=== PATIENT | male | born 1965 | race Caucasian/White ===

== ENCOUNTER 2023-07-17 19:13 | Emergency (ER) | payer OTHER, SELFPAY ==
[2023-07-17 19:47] VITALS: BP 152/78; PULSE 78; RESP 16; TEMP 36.6; O2SAT 96; BMI 35.9
--- NOTE | 2023-07-17 20:37 | CT_ITS ---
The [address] [address] Patient Name: MARY KAY BERNAL MRN: [id number] date: 1965 Sex: M Assigned Patient Location: ER Current Patient Location: [facility] Accession/Order Number: [id number] Exam Date: 07/17/2023 21:30 Report Date: 07/17/2023 22:13 At the request of: IVA FOSS Procedure: CT facial bones w con CT SCAN OF THE FACE WITH CONTRAST HISTORY: Concern for abscess. TECHNIQUE: Multiple axial images are performed through the facial bones from the level above the frontal sinuses down through the mandible. Images are then reconstructed in the sagittal and coronal planes.This exam was performed according to our departmental dose-optimization program which includes use of Automated Exposure Control, adjustment of the mA and/or kV according to patient size and/or use of iterative reconstruction technique. With contrast. Contrast: 20 cc of Omnipaque 300 COMPARISON: None. FINDINGS: Bones: There is no evidence for acute fracture. Mineralization: Bone mineralization is within normal limits. Soft tissues: Soft tissues are edematous. Paranasal sinuses: Left maxillary sinus mucus retention cyst The paranasal sinuses are otherwise well aerated. Mastoid air cells: The mastoid air cells are well aerated. Orbits: Normal. Question of a developing abscess in the posterior left mandible tooth. CT/CT facial bones w con IMPRESSION: 1. Mild soft tissue swelling. No drainable fluid collection. 2. Left mucous retention cysts within the maxillary sinus. 3. Question of a developing abscess in the posterior left mandible tooth. However, this should be evaluated by dentist. 4. Otherwise unremarkable CT scan of the face. Electronically authenticated by: BERNARDO GUALLPA Date: 07/17/2023 22:13
--- NOTE | 2023-07-17 20:40 | ED_ITS ---
HPI - Dental/Oral General Chief complaint: Dental/Oral Stated complaint: FACIAL MASS Time Seen by Provider: 07/17/23 19:59 Source: patient Mode of arrival: walk-in History of Present Illness HPI Narrative: Patient is a 58-year-old male with a history of diabetes who presents to the emergency department for pain and swelling to the mandible. He states for 3 to 4 weeks he has had a dental abscess which he believes is originating from tooth #26. He states he uses oral tobacco. He states he has swelling and pain in the anterior jaw, there has been no drainage, 1 week ago he finished doxycycline that was prescribed over the phone by his PCP. Patient states he had some improvement of the area but now feels it is worsening. He has had no difficulty swallowing or breathing. No objective fevers or vomiting. Related Data Home Medications Medication Instructions Recorded Confirmed insulin degludec 100 unit/mL (3 unit subcut 07/17/23 mL) subcutaneous pen (Tresiba FlexTouch U-100 insulin) lisinopril 10 mg tablet mg 07/17/23 metformin 1,000 mg tablet mg 07/17/23 pen needle, diabetic 32 gauge x 07/17/23 07/17/2332 (BD Sadie 2nd Gen Pen Needle) Previous Rx's Medication Instructions Recorded cephalexin 500 mg capsule 500 mg PO QID 10 days #40 caps 07/17/23 sulfamethoxazole 800 1 tab PO BID 10 days #20 tabs 07/17/23 mg-trimethoprim 160 mg tablet (Bactrim DS) Allergies Allergy/AdvReac Type Severity Reaction Status Date / Time Penicillins Allergy Verified 07/17/23 19:54 Review of Systems ROS Constitutional Denies: fever or chills Ears, nose, mouth, and throat Reports: mouth pain; Denies: throat pain or nasal congestion Cardiovascular Denies: chest pain Respiratory Denies: shortness of breath Gastrointestinal Denies: nausea or vomiting Musculoskeletal Denies: back pain or neck pain Integumentary/Breast Denies: rash Neurological Denies: headache Endocrine Denies: excessive urination PFSH PFSH Social History Smoking status: Never smoker Exam Narrative Exam Narrative: Gen.: Awake, alert, in no distress Head: Normocephalic, atraumatic ENT: Moist mucous membranes; large erythematous indurated abscess to the right anterior mandible with no palpable fluctuance or purulence. No folliculitis or pustules noted. Gumline in the anterior mandible/mucous membrane is erythematous and tender. No redness or swelling under the tongue. Clear speech. Airway widely open and patent with no trismus or drooling. No palpable swelling or induration to the submental space. Respiratory: No respiratory distress Extremities: Moves extremities equally Psych: Normal mood and affect Neuro: No focal neuro deficit Skin: Warm, dry, intact Constitutional Vital Signs, click to edit/add: Last Vital Signs Temp 97.8 F 07/17/23 19:47 Pulse 78 07/17/23 19:47 Resp 16 07/17/23 19:47 BP 151/83 H 07/17/23 21:05 Pulse Ox 96 07/17/23 19:47 Course Vital Signs Vital signs: Vital Signs Temperature 97.8 F 07/17/23 19:47 Pulse Rate 78 07/17/23 19:47 Respiratory Rate 16 07/17/23 19:47 Blood Pressure 152/78 H 07/17/23 19:47 Pulse Oximetry 96 07/17/23 19:47 Temperature 97.8 F 07/17/23 19:47 Pulse Rate 78 07/17/23 19:47 Respiratory Rate 16 07/17/23 19:47 Blood Pressure 151/83 H 07/17/23 21:05 Pulse Oximetry 96 07/17/23 19:47 MDM - Dental/Oral MDM Narrative Medical decision making narrative: 2151: Patient ordered to have IV pain medication, IV clindamycin. Exam is consistent with cutaneous abscess versus cellulitis of the face with no obvious dental or intraoral involvement at this time. Vital signs are unremarkable. Labs show normal white blood cell count, normal creatinine. Blood cultures were obtained. CT of the facial bones with contrast was obtained, results are pending at this time and case is turned over to attending physician. 10:25pm CT scan does not show abscess on the chin area. He has an incidental dental abscess on the left posterior area unrelated to his current issue. He'll follow-up with a dentist for that issue. treatment diagnosis and follow-up were discussed with the patient. Differential Diagnosis Differential diagnosis: Likely gingival abscess, dental caries, dental abscess and other (she'll abscess, facial cellulitis) Medical Records Attestation: I reviewed the patient's medical records. Lab Data Labs: Lab Results 07/17/23 Range/Units 20:45 WBC 9.3 (4.0-11.0) 10^3/uL RBC 4.96 (4.70-6.10) 10^6/uL Hgb 15.2 (14.0-18.0) g/dL Hct 45.8 (42.0-54.0) % MCV 92.3 (80.0-94.0) fL MCH 30.6 (25.9-34.0) pg MCHC 33.2 (29.9-35.2) g/dL RDW 12.3 (11.0-15.0) % Plt Count 314 (150-450) 10^3/uL MPV 10.3 (9.5-13.5) fL Neut % (Auto) 50.1 (43.0-75.0) % Lymph % (Auto) 40.5 (20.5-60.0) % [place] % (Auto) 6.9 (1.7-12.0) % Eos % (Auto) 1.8 (0.9-7.0) % Baso % (Auto) 0.4 (0.2-2.0) % Neut # (Auto) 4.7 (1.4-6.5) 10^3/uL Lymph # (Auto) 3.8 (1.2-3.8) 10^3/uL [place] # (Auto) 0.6 (0.3-0.8) 10^3/uL Eos # (Auto) 0.2 (0.0-0.7) 10^3/uL Baso # (Auto) 0.0 (0.0-0.1) 10^3/uL Abs Immat Gran (auto) 0.03 (0.00-0.03) 10^3/uL Imm/Tot Granulo (auto) 0.3 (0.0-0.5) % ESR 23 H (<=20) mm/hr Sodium 139 (136-145) mmol/L Potassium 3.6 (3.5-5.1) mmol/L Chloride 104 (98-107) mmol/L Carbon Dioxide 28.5 (21.0-32.0) mmol/L Anion Gap 10.1 BUN 12.0 (7.0-18.0) mg/dL Creatinine 0.78 (0.70-1.30) mg/dL Est GFR ( Amer) >60 (>=60) Est GFR (Non-Af Amer) >60 (>=60) BUN/Creatinine Ratio 15.4 Glucose 185 H (74-106) mg/dL Calcium 9.0 (8.5-10.1) mg/dL Total Bilirubin 0.4 (0.2-1.0) mg/dL AST 18 (15-37) U/L ALT 35 (16-63) U/L Alkaline Phosphatase 79 (46-116) U/L C-Reactive Protein 0.73 H (<=0.50) mg/dL Total Protein 7.8 (6.4-8.2) g/dL Albumin 3.9 (3.4-5.0) g/dL Globulin 3.9 g/dL Albumin/Globulin Ratio 1.[address] facial bones with contrast: Radiologist's impression: Procedure: CT facial bones w con CT SCAN OF THE FACE WITH CONTRAST HISTORY: Concern for abscess. TECHNIQUE: Multiple axial images are performed through the facial bones from the level above the frontal sinuses down through the mandible. Images are then reconstructed in the sagittal and coronal planes.This exam was performed according to our departmental dose-optimization program which includes use of Automated Exposure Control, adjustment of the mA and/or kV according to patient size and/or use of iterative reconstruction technique. With contrast. Contrast: 20 cc of Omnipaque 300 COMPARISON: None. FINDINGS: Bones: There is no evidence for acute fracture. Mineralization: Bone mineralization is within normal limits. Soft tissues: Soft tissues are edematous. Paranasal sinuses: Left maxillary sinus mucus retention cyst The paranasal sinuses are otherwise well aerated. Mastoid air cells: The mastoid air cells are well aerated. Orbits: Normal. Question of a developing abscess in the posterior left mandible tooth. IMPRESSION: 1. Mild soft tissue swelling. No drainable fluid collection. 2. Left mucous retention cysts within the maxillary sinus. 3. Question of a developing abscess in the posterior left mandible tooth. However, this should be evaluated by dentist. 4. Otherwise unremarkable CT scan of the face. Electronically authenticated by: BERNARDO GUALLPA Date: 07/17/2023 22 Discharge Plan Discharge Chief Complaint: Dental/Oral Clinical Impression: Cellulitis of face Patient Disposition: Home, Self-Care Time of Disposition Decision: 22:24 Condition: Good Mode of Transportation: Private Vehicle Prescriptions / Home Meds: New sulfamethoxazole-trimethoprim [Bactrim DS] 800-160 mg tablet 1 tab PO BID 10 Days Qty: 20 0RF cephalexin 500 mg capsule 500 mg PO QID 10 Days Qty: 40 0RF No Action metformin 1,000 mg tablet lisinopril 10 mg tablet (DME) pen needle, diabetic [BD Sadie 2nd Gen Pen Needle] 32 gauge x 5/32 needle MISCELLANEOUS insulin degludec [Tresiba FlexTouch U-100] 100 unit/mL (3 mL) insulin pen SUBCUT Instructions: Cellulitis (ED) Additional Instructions: Follow-up with her dentist about the other dental issues Stand Alone Forms: Portal Instructions Referrals: Physician,Non-Staff, MD [Primary Care Provider] - 1 week
[2023-07-17 20:56] LABS: Basophils Percent Auto 0.4 % (0.2-2.0); Eosinophils Absolute Auto 0.2 10^3/uL (0.0-0.7); Eosinophils Percent Auto 1.8 % (0.9-7.0); Hematocrit 45.8 % (42.0-54.0); Hemoglobin 15.2 g/dL (14.0-18.0); Immature Granulocytes Abs Auto 0.03 10^3/uL (0.00-0.03); Immature Granulocytes Pct Auto 0.3 % (0.0-0.5); Lymphocytes Absolute Auto 3.8 10^3/uL (1.2-3.8); Lymphocytes Percent Auto 40.5 % (20.5-60.0); Mean Corpuscular HGB Conc 33.2 g/dL (29.9-35.2); Mean Corpuscular Hemoglobin 30.6 pg (25.9-34.0); Mean Corpuscular Volume 92.3 fL (80.0-94.0); Mean Platelet Volume 10.3 fL (9.5-13.5); Monocytes Absolute Auto 0.6 10^3/uL (0.3-0.8); Monocytes Percent Auto 6.9 % (1.7-12.0); Neutrophils Absolute Auto 4.7 10^3/uL (1.4-6.5); Neutrophils Percent Auto 50.1 % (43.0-75.0); Platelet Count 314 10^3/uL (150-450); Red Blood Count 4.96 10^6/uL (4.70-6.10); Red Cell Distribution Width 12.3 % (11.0-15.0); White Blood Count 9.3 10^3/uL (4.0-11.0)
--- NOTE | 2023-07-17 20:57 | PC.NURSE ---
Pt presents to ER for a tooth abscess he has been dealing with for an extended period of time Pt states he finished a course of antibiotics (doxycycline) one week ago Pt states he uses warm compresses and ice but it only helps momentarily The outer aspect of the patients chin on the right side is raised, warm, tender, and bright red
[2023-07-17] MEDS: CLINDAMYCIN PHOSPHATE/D5W 900 MG/50 ML PIGGYBACK 100 MG IV (21:03)
[2023-07-17] MEDS: ONDANSETRON PF 4 MG/2 ML VIAL IV (21:03)
[2023-07-17 21:04] LABS: Erythrocyte Sedimentation Rate 23 mm/hr (<=20)
[2023-07-17] MEDS: KETOROLAC TROMETHAMINE 30 MG/ML VIAL IVP (21:04)
[2023-07-17] MEDS: MORPHINE SULFATE 4 MG/ML VIAL IV (21:04)
[2023-07-17 21:05] VITALS: BP 151/83
[2023-07-17 21:11] LABS: Alanine Aminotransferase 35 U/L (16-63); Albumin Level 3.9 g/dL (3.4-5.0); Alkaline Phosphatase 79 U/L (46-116); Anion Gap 10.1; Aspartate Amino Transferase 18 U/L (15-37); BUN Creatinine Ratio 15.4; Bilirubin Total 0.4 mg/dL (0.2-1.0); Carbon Dioxide 28.5 mmol/L (21.0-32.0); Chloride 104 mmol/L (98-107); Estimated GFR (African America >60 (>=60); Estimated GFR (Non-African Ame >60 (>=60); Globulin 3.9 g/dL; Glucose 185 mg/dL (74-106); Potassium 3.6 mmol/L (3.5-5.1); Sodium 139 mmol/L (136-145); Total Protein 7.8 g/dL (6.4-8.2)
[2023-07-17 21:12] LABS: C Reactive Protein 0.73 mg/dL (<=0.50)
[2023-07-17 22:47] VITALS: BP 154/90
== END 2023-07-17 22:49 | disposition home or self-care (01) ==
PROVIDERS: Physician Assistant; Emergency Provider Emergency Medicine
DX: L03.211 Cellulitis of face (principal); E11.9 Type 2 diabetes mellitus without complications; F17.220 Nicotine dependence, chewing tobacco, uncomplicated; Z79.4 Long term (current) use of insulin; Z79.84 Long term (current) use of oral hypoglycemic drugs
CPT/HCPCS: 36415; 70487; 80053; 85025; 85652; 86140; 87040; 96365; 96375; 99285; Q9967

== ENCOUNTER 2023-12-17 17:11 | Emergency (ER) | payer OTHER, SELFPAY ==
[2023-12-17 17:16] VITALS: BP 176/95; PULSE 109; TEMP 36.9; O2SAT 96; BMI 34.7
--- OUTSIDE RECORDS SUMMARY | 2023-12-17 17:22 | XMS_ITS | CCD ---
Author Organization [facility] Care Team Providers Care Loom Doffer Name Role Phone DO Ori Dunbar Primary Care Provider MD Manjinder Castanon Attending Provider [phone] ORI DUNBAR Primary Care Physician [phone] ORI DUNBAR Referring Unavailable Riley PANIAGUA Attending Unavailable DO Ori Dunbar Primary Care Provider DWAIN Echavarria Emergency Provider DWAIN Anderson Emergency Provider [phone] Aminta Fair Unavailable Mapus, Tondra Unavailable PETORI RYAN C Attending Unavailable PETCHAROICKORI C Referring Unavailable Petznick, Ori Primary Care Unavailable Mapus, Tondra K Admitting Unavailable Mapus, Tondra K Attending Unavailable Petznick, Ori Admitting Unavailable Petznick, Ori Primary Care Unavailable Petznick, Ori Attending Unavailable Petcharoick, Ori Primary Care Unavailable Manjinder Castanon Admitting Unavailable Manjinder Castanon Attending Unavailable Petznick, Ori Primary Care Unavailable Juan Pablo Echavarriaothy Admitting Unavailable Estiven Echavarria Attending Unavailable Petznick, Ori Primary Care Unavailable Sophia Anderson Admitting Unavailable Sophia Anderson Attending Unavailable Allergies Allergy Classification Reported Allergen(s) Allergy Type Date of Onset Reaction(s) Facility (1 source) penicillAMINE Drug Allergy [facility] Other (3 sources) Penicillin Drug Allergy [facility] Other (1 source) Penicillins Drug allergy (disorder) 3 [facility] Repository Medications Current Medications Medication Drug Class(es) Dates Sig (Normalized) Sig (Original) acetaminophen 325 mg / oxyCODONE hydrochloride 5 mg oral tablet (3 sources) Opioid Agonist Start: 02-20-2023 take 1 tablet by mouth every eight hours Oxycodone-Acetamin ophen (Percocet) 5-325 mg tablet Active 1 TAB PO Q8H 7 February 20, 2023 doxycycline hyclate 100 mg oral capsule (3 sources) Tetracycline-class Drug Start: 02-20-2023 take 100 mg by mouth twice daily Doxycycline Hyclate Active 100 MG PO Twice daily 20 February 19, 2023 11:00pm glimepiride 1 mg oral tablet (7 sources) Sulfonylurea Start: 09-30-2022 take 1 mg by mouth once daily Glimepiride Active 1 MG PO Daily September 29, 2022 11:00pm 3 ml insulin aspart, human 100 unt/ml pen injector (3 sources) Insulin Analog Start: 05-19-2023 Fiasp FlexTouch 100 UNIT/ML corrective scale 1:50 ac tid Subcutaneous As Directed (expect up to 30 units/day) Use my $99 coupon from kevin May, Active 3 ml insulin degludec 100 unt/ml pen injector (6 sources) Insulin Analog Start: 05-19-2023 Tresiba FlexTouch 100 UNIT/ML 24 units Subcutaneous qhs for 30 days (titrate up to 30 units/day) Use my $99 coupon from kevin May, Active inject 22 [IU] by louis bcutaneous injection once at bedtime Tresiba FlexTouch 100 UNIT/ML 22 units Subcutaneous Q HS Active lisinopril 10 mg oral tablet (7 sources) Angiotensin Converting Enzyme Inhibitor Start: 09-30-2022 take 10 mg by mouth once daily Lisinopril Active 10 MG PO Daily September 29, 2022 11:00pm pregabalin 75 mg oral capsule (4 sources) Start: 09-30-2022 take 75 mg by mouth once daily Pregabalin Active 75 MG PO Daily September 29, 2022 11:00pm rosuvastatin calcium 20 mg oral tablet (7 sources) HMG-CoA Reductase Inhibitor Start: 09-30-2022 take 20 mg by mouth once daily Rosuvastatin Active 20 MG PO Daily September 29, 2022 11:00pm Completed/Discontinued Medications Medication Drug Class(es) Dates Sig (Normalized) Sig (Original) metFORMIN hydrochloride 500 mg oral tablet (7 sources) Biguanide Start: 09-30-2022 End: 2023 take 500 mg by mouth twice daily Metformin Discontinued 500 MG PO Twice daily September 29, 2022 11:00pm 2023 10:17am take 1 tablet by lynn th every twelve hours metFORMIN HCl 1000 MG 1 tablet with a me al Orally Twice a day Active Problems Active Problems Problem Classification Problem Date Documented Date Episodic/Chronic Administrative/social admission (1 source) Dietary counseling and surveillance Episodic Diabetes mellitus with complications (8 sources) Hyperglycemia due to type 2 diabetes mellitus; Translations: [Type 2 diabetes mellitus with hyperglycemia] Chronic Diabetes mellitus without complication (5 sources) Type 2 diabetes mellitus; Translations: [Type 2 diabetes mellitus without complications] Onset: 05-19-2023 Chronic Disorders of lipid metabolism (12 sources) Hypertriglyceridemia ; Translations: [Pure hyperglyceridemia] Chronic Essential hypertension (4 sources) Hypertensive disorder; Translations: [Essential (primary) hypertension] Chronic Nutritional deficiencies (4 sources) Vitamin D deficiency; Translations: [Vitamin D deficiency, unspecified] Chronic Other aftercare (2 sources) Follow-up status; Translations: [Encounter for change or removal of nonsurgical wound dressing] 2023 Episodic Other aftercare (7 sources) Long-term current use of insulin; Translations: [intermodal dispatcher (current) use of insulin] Episodic Other aftercare (1 source) intermodal dispatcher (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) use of insulin Episodic Other nutritional; endocrine; and metabolic disorders (4 sources) Obesity; Translations: [Obesity, unspecified] Chronic Other nutritional; endocrine; and metabolic disorders (4 sources) Obese class II; Translations: [Body mass index (BMI) 35.0-35.9, adult] Chronic Other nutritional; endocrine; and metabolic disorders (1 source) Body mass index (BMI) 35.0-35.9, adult Chronic Pancreatic disorders (not diabetes) (4 sources) Acute pancreatitis; Translations: [Other acute pancreatitis] Episodic Unclassified (1 source) Dietary counseling and surveillance; Translations: [Dietary counseling and surveillance] Onset: 05-06-2023 Unclassified (1 source) Encounter for screening for malignant neoplasm of colon; Translations: [Encounter for screening for malignant neoplasm of colon] Onset: 09-30-2022 Past or Other Problems Problem Classification Problem Date Documented Da te Episodic/Chronic Skin and subcutaneous tissue infections (8 sources) Abscess; Translations: [Cutaneous abscess, unspecified] Onset: 02-20-2023 02-20-2023 Episodic Results Test Name Value Interpretation Reference Range Facility A1C HEMOGLOBINon 05-19-2023 HbA1c (Bld) [Mass fraction] 9.3 % [facility] Other Glucose - FINGER STICKon Glucose [Mass/Vol] 236 mg/dL [place] [facility] Other HbA1c (Bld) [Mass fraction]o n 05-19-2023 A1C HEMOGLOBIN [facility] [employer] Other Glucose Glucometer (BldC) [M ass/Vol]Ordered By: Manjinder Castanon on 09-30-2022 Glucose [Mass/Vol] 198 mg/dL [facility] Comment on above: Random Glucose Refer ence Range is dependent on time and content of last meal. Glucose of more than 200 mg/dL in a nonstressed, ambulatory subject supports the diagnosis of Diabetes Mellitus. Glucose Poct Glucometerson 0 09-30-2022 Commemt1 Glu2: Cleaned Meter [facility] Comment on above: Result Comment: PERF ORMED BY: [facility] [address] [place] [address] PATHOLOGIST LEGISLATIVE [employer]VOCATE NITISH MORLEY M.D. Performed By: #### G ZOELS #### Point of Care testing , Glucose [Mass/Vol] 198 mg/dL Normal [facility] Comment on above: Result Comment: [place] om Glucose Reference Range is dependent on time and content of last meal. Glucose of more than 200 mg/dL in a nonstressed, ambulatory subject supports the diagnosis of Diabetes Mellitus. Performed By: #### G ZOELS #### Point of Care testing , Jarad 09-30-2022 L Specimen: [id number] Received: 09/30/22 Status: EDITATino Drake Num: [id number] Spec Type: Surgical Subm Dr: Manjinder Castanon MD Tissues: A Colon Biopsy (SIGMOID POLYP) Procedures: HE/Terell, Gross/Micro L4 Age/ Patient Sex Location Account Attending Physician Trevon Fernandez/M [id number] Manjinder Castanon MD SPEC NUM: [id number] RECD: 09/30/22 STATUS: ALIX DRAKE NUM: [id number] SANTANA: 09/30/22[facility] DR: Manjinder Castanon MD ENTERED: 09/30/22 BERTHA WISDOM: SPEC TYPE: Surgical DEPT: S ORDERED: HE/2, Gross/Micro L4 ORDERED: HE/2, Gross/Micro L4 Pathological Diagnosis Colon, sigmoid, polyp, biopsy: - Tubular adenoma. Clinical Information Polyp Gross Description Received in formalin labeled with the patient's name, number and polyp sigmoid is one fragment of soft [place] tissue measuring 0.6 x 0.3 x 0.2 cm admixed with fecal material. Entirely submitted in one cassette labeled A1. Microscopic Description Two glass slides with H E stained material have been examined. The microscopic findings support the above pathologic diagnosis. CPT Codes 98270 Specimen: [id number] Received: 09/30/22 Status: ALIX Drake Num: [id number] Spec Type: Surgical Subm Dr: Manjinder Castanon MD Tissues: A Colon Biopsy (SIGMOID POLYP) Procedures: HE/2, Gross/Micro L4 Patient: JimTrevon [id number] (Continued) Signed (gaye romero on file) Justyna Devries MD 10/01/22 0955 [facility] No Panel InformationOrdered By: Manjinder Castanon on 09-30-2022 Bedside Glucose Comment Glu2: cleaned meter [facility] Vital Signs Date Time Vital Sign Value Performing Clinician Facility 05-19-2023 13:00-0400 Body height 187.96 cm Tondra Mapus Other [facility] Other 05-19-2023 13:00-0400 Body mass index (BMI) [Ratio] 35.05 kg/m2 Tondra Mapus Other [facility] Other 05-19-2023 13:00-0400 Body weight 123.83 kg Tondra Mapus Other [facility] Other 05-19-2023 13:00-0400 Diastolic blood pressure 83 mm[Hg] Tondra Mapus Other [facility] Other 05-19-2023 13:00-0400 Respiratory rate 18 /min Tondra Mapus Other [facility] Other 05-19-2023 13:00-0400 SaO2% (BldA) [Mass fraction] 95 % Tondra Mapus Other [facility] Other 05-19-2023 13:00-0400 Systolic blood pressure 149 mm[Hg] Tondra Mapus Other [facility] [employer] Other 05-06-2023 10:00-0400 Body height 187.96 cm Aminta Fair Other [facility] Other 2023 11:17-0400 Body height 187.96 cm DO Ori Petznick Work Phone: [facility] 2023 11:17-0400 Body temperature 98.2 [degF] DO Ori Petznick Work Phone: [facility] 2023 11:17-0400 Body weight 122.05 kg DO Ori Petznick Work Phone: [facility] 2023 11:17-0400 Diastolic blood pressure 82 mm[Hg] DO Ori Petznick Work Phone: [facility] 2023 11:17-0400 Heart rate 93 /min DO Ori Petznick Work Phone: [facility] 2023 11:17-0400 Respiratory rate 18 /min DO Ori Petznick Work Phone: [facility] 2023 11:17-0400 SaO2% (BldA) [Mass fraction] 96 % DO Ori Petznick Work Phone: [facility] 2023 11:17-0400 Systolic blood pressure 168 mm[Hg] DO Ori Petznick Work Phone: [facility] 02-20-2023 12:04-0400 Body height 187.96 cm DO Ori Petznick Work Phone: [facility] 02-20-2023 12:04-0400 Body weight 122.46 kg DO Ori Petznick Work Phone: [facility] 02-20-2023 12:02-0400 Body temperature 98.8 [degF] DO Ori Petznick Work Phone: [facility] 02-20-2023 12:02-0400 Diastolic blood pressure 101 mm[Hg] DO Ori Petznick Work Phone: 1(604)743-374479 [place] [address] 02-20-2023 12:02-0400 Heart rate 90 /min DO Ori Petznick Work Phone: 3(154)214-063412 [address] 02-20-2023 12:02-0400 Respiratory rate 16 /min DO Ori Petznick Work Phone: [phone])[phone] [place] [address] 02-20-2023 12:02-0400 SaO2% (BldA) [Mass fraction] 96 % DO Ori Petznick Work Phone: 3(333)563-925012 [address] 02-20-2023 12:02-0400 Systolic blood pressure 158 mm[Hg] DO Ori Petznick Work Phone: 3(532)442-064812 [address] 09-30-2022 09:10-0400 Diastolic blood pressure 65 mm[Hg] DO Ori Petznick Work Phone: 5(805)962-218112 [address] 09-30-2022 09:10-0400 Heart rate 65 /min DO Ori Petznick Work Phone: 5(219)882-821012 [address] 09-30-2022 09:10-0400 Respiratory rate 16 /min DO Ori Petznick Work Phone: 4(287)[phone] [address] 09-30-2022 09:10-0400 Systolic blood pressure 158 mm[Hg] DO Ori Petznick Work Phone: 0(514)[phone] [address] 09-30-2022 08:55-0400 SaO2% (BldA) [Mass fraction] 96 % DO Ori Petznick Work Phone: 2([phone])701-624912 [address] 09-30-2022 07:11-0400 Body height 187.96 cm DO Ori Petznick Work Phone: 0(523)335-945779 [place] [address] 09-30-2022 07:11-0400 Body weight 124.22 kg DO Ori Petznick Work Phone: [facility] Encounters Encounter Date Encounter Type Care Provider Facility Start: 08-25-2023 End: 08-25-2023 ambulatory Micaela Portillo Other [facility] Other Start: 08-25-2023 Telephone encounter Micaela Baldwin [facility] Start: 08-12-2023 End: 08-12-2023 ambulatory ORI DUNBAR Not Available Start: 05-19-2023 End: 05-20-2023 ambulatory Ori Dunbar [facility] [employer] Other Start: 05-19-2023 [facility] visit new patient Micaela Portillo [facility] Start: 05-12-2023 End: 05-12-2023 ambulatory Micaela Portillo Other [facility] Other Start: 05-12-2023 Telephone encounter Micaela Baldwin [facility] Start: 05-06-2023 (RD) Assistant Customer Service Manager Aminta Fair [facility] Start: 05-06-2023 End: 05-07-2023 ambulatory Ori Dunbar [facility] [employer] Other Start: 2023 End: 2023 Emergency department patient visit Ori Dunbar Facility[facility] Start: 2023 End: 2023 Emergency department patient visit DO Ori Petcharoick Work Phone: [facility] Work Phone: Start: 02-20-2023 End: 02-20-2023 Emergency department patient visit Ori Dunbar Facility[facility] Start: 02-20-2023 End: 02-20-2023 Emergency department patient visit DO Ori Petznick Work Phone: [facility] Work Phone: Start: 10-21-2022 End: 10-22-2022 ambulatory ORI PETZNICK Facility:[facility] Start: 10-21-2022 End: 10-21-2022 Patient encounter procedure Riley Herrera SIV[facility] Start: 09-30-2022 End: 09-30-2022 ambulatory Ori Dunbar Facility[facility] Start: 09-30-2022 End: 09-30-2022 Admission to same day surgery center DO Ori Dunbar Work Phone: [facility] Work Phone: Start: 09-30-2022 End: 09-30-2022 ambulatory DO Ori Dunbar Work Phone: [facility] Work Phone: Start: 09-01-2022 ambulatory ORI DUNBAR Facili ty:[facility] Procedures Date Procedure Procedure Detail Performing Clinician Start: 09-30-2022 Screening colonoscopy D O Ori Dunbar Work Phone: Plan of Treatment Date Care Activity Detail Author Start: 09-30-2022 [facility] Patient Education [facility] Work Phone: Patient referral [facility] Work Phone: Payers Date Payer Category Payer Unknown [id number] 2022 Self-pay [id number] 2022 Unknown [id number] 1965 Unknown [id number] [id number] [id number] Private Health Insurance [id number] Unknown [id number] 2.16.8 [id number] Unknown [id number] 2.16.8 [id number] Unknown [id number] 2.16.8 [id number] Unknown [id number] 2.16.8 [id number] Unknown [id number] 2.16.8 [id number] Social History Date Type Detail Facility Tobacco smoking stat us NCIS Unknown if ever smoked [facility] Work Phone: Start: 1965 Sex Assigned At Male [facility] Tobacco smoking status No Smokin g Status Entered [facility] Sex Assigned At Male [facility] Start: 02-20-2023 End: 2023 Tobacco smoking status NHIS Never smoked tobacco (finding) [facility] Goals Date Patient Goal Desired Activity /State Clinical Notes 09-30-2022 to 05-19-2023 Note Date & Type Note Facility 05-19-2023 Evaluation note Encounter Date Diagnosis Assessment Notes May, Insulin long-term use (ICD-10 - Z79.4) May, Type 2 diabetes mellitus (ICD-10 - E11.9) 1. Uncontrolled, a Type 2 diabetes with A1c of 9.3% 2. Blood glucose levels according to kaye cgm download 05/06/23-05/19/23: Avg glucose 269. >250-56%, >180-39%, 70-180-5%, <70-0%, <54-0%. CV 21.3% Reviewed download with pt, glucose above target fasting am/meal to meal. Recommend pt increase tresiba to 24 units qhs. Start fiasp 1:50 ac tid corrective scale. Reviewed with pt how to titrate basal insulin according to fasting am glucose. Pt given handout how to Thrive: A Guide for Your Journey with Diabetes: Recommend pt reducing milk intake to 8 oz with meal for improved postprandial glycemia. Will check labs to confirm type 2 dm vs type 1 dm; pt with family hx brother type 1 dm. Note: pt with hx pancreatitis do not recommend use of dpp4 or glp1 class of medication. 3. Patient is alert, oriented and receptive to making changes or counseling Notes: Seen for 60 minutes for an assessment of current glucose pattern, changes in treatment plan, counseling and coordination of care related to diabetes, risks, and benefits of treatment, medications, side effects. Given handouts to reinforce concepts reviewed during counseling, see scanned notes. TOPICS REVIEWED: 1. Time was spent reviewing: a. Basic concepts of diabetes, progressive beta cell , concepts of basal/bolus/corre ctive insulin requirements. Basal: The goal is fasting blood glucose of 90-130mg. If fasting blood glucose starts to run under 100mg 3x's/ week, decrease dose by 10%. Bolus: The goal is to hold the blood glucose level steady meal to meal. If pt. is going to have increased physical activity after a meal, decrease the schedule meal dose prior to the activity by 30-50%. If pt. skips a meal do not take this dose. Correction: The goal is to correct an elevated glucose back into the 100-150mg range b. Nutrition: Concepts of healthy diet reviewed, encouraged to decrease saturated fat in diet and increase non-starchy vegetables and fruits in diet. BMI: Pt. needs to select one small change to decrease caloric intake or increase physical activity to help decrease weight. c. Correct treatment of hypoglycemia, carry a glucose source at all times on your person, in vehicles, and at bedside. Can use glucose tablets/4, four ounces of pop or juice equal to 15 G of carbohydrate. Blood glucose should be 100 mg/dl or higher when driving. d. ADA glucose goals for age and medical complexity reviewed e. Patient questions addressed 2. Activity/exercise : Encouraged to start any form of physical activity. Start low level and increase slowly to a minimal goal of 150 minutes/week. Limit activity to what is allowed by other issues such as cardiac, pulmonary or orthopedic restrictions. 3. Standards of care: Reminded to have an annual dilated eye exam, A1C every 3 months, urine testing for microalbumin once/year, check feet daily and report any cuts or sores that do not appear to be healing. 4. Meter: Plan to check blood glucose: Please check blood glucose levels 4 times/day. Back to back meals reveal effectiveness of bolus dosing.5. [facility] 3 [facility]. Contact office if any issues or concerns with patterns of hypoglycemia, hyperglycemia, or diabetes medication issues. 6. Prescriptions: [facility] [address] [facility] Tresiba sent 05/19/23. Sample x2 boxes pen needles given. Sample fiasp u100 x1 pen given. 7. Prescriptions will not be filled unless you are compliant with follow up appointments or have a follow appointment scheduled as per ordered by your provider. Refills should be requested at the time of your visit. May, Dietary counseling and surveillance (ICD-10 - Z71.3) see above May, HTN (hypertension) (ICD-10 - I10) on chidi, uncontrolled; f/u with pcp for further recommendation May, Hyperlipidemia (ICD-10 - E78.5) May, BMI 35.0-35.9,adult (ICD-10 - Z68.35) see above [facility] Other 10-19-2023 Evaluation note* Encounter Date Diagnosis Assessment Notes Treatment Notes Treatment Clinical Notes Apr, Other Summary of Visi t: (A) Discussed carbs, types of carbs, sources of carbs and impact on BG levels (B) Discussed impact of fiber and protein on BG response (glycemic index) (C) Meal planning using food models and adjusting favorite meals to create more balance in food groups Patient set the following goals: - Eat meal or snack 3 x/day - aim for 1/2 plate veggies at dinner [facility] Other 08-07-2023 Hospital Discharge instructions Additional Instructions Warm compresses to area affected Continue antibiotic as instructed until gone Follow-up with your PCP for 3 to 5 days Return here if any problems persist or worsen including fever, chills, increased pain, swelling or any other [facility] Work Phone: [phone]) 598-510003-15-2023 [facility] No data available for this section [facility] Evaluation noteNo assessment information available [facility] Work Phone: Evaluation noteNo InformationNorth [facility] Other History and physical note Author Manjinder Castanon [facility] September 30, 2022 8:20am Note Date/Time September 30, 2022 8:2 0am [facility] [address] [place] [address] Gastroenterology H&P Signed Patient: Trevon Fernandez MR#: [id number] : 1965 Acct:[id number] Age/Sex: 57 / M Adm Date: 3 Loc: Room: Type: [facility] Attending Dr: Manjinder Castanon MD Copies to: MD Ori Sung, DO~ Date of Service: 09/30/2022 HISTORY & PHYSICAL: Patient's history with special attention to the cardiovascular, pulmonary systems and the current problem was reviewed with the patient immediately prior to the procedure. Present medications and doses reviewed in the EMR. Allergies and pertinent laboratory tests were also reviewedat this time in the EMR. The physical examination, as below, was then performed. Indication, assessment and HPI: 57-year-old male presents for screening colonoscopy Family history of GI malignancy? No PHYSICAL EXAMINATION Mouth and Pharynx : Moist mucus membranes, normal dentition Cardiac: Regular rate, regular rhythm Pulmonary: Clear to auscultation bilaterally, no wheezing Neurological: Alert and oriented x3, no focal deficits noted Abdomen: Abdomen soft, non-tender REVIEW OF SYSTEMS Constitutional: Denies malaise, fevers Cardiovascular: Denies chest pain, palpitations Respiratory: Denies shortness of breath, wheezing Gastrointestinal: Per HPI Genitourinary: Denies dysuria, polyuria Musculoskeletal: Denies joint swelling, joint stiffness Neurological: Denies numbness, tingling Integumentary: Denies rashes, skin lesions Endocrine: Denies fatigue, weight loss Written informed consent obtained from the patient. Risks (including but not limited to perforation, infection, bloating, bleeding, need for emergent surgeryand loss of life), benefits and alternatives explained and questions answered. The patient verbalized understanding. Based on history patient is an appropriate candidate for the procedure. Manjinder Castanon MD Documented By: Manjinder Castanon MD 09/30/22 0820 Signed By: <Electronically signed by Manjinder Castanon MD> 09/30/22 0820 [facility] Work Phone: [facility] Narrative - Reported* Type Description Date Medical History DM 2 Medical History HTN Medical History HLP, mixed Surgical History right knee arthoscope 1986 Surgical History left knee arthoscope 2015 Surgical History tonsillectomy Hospitalization History PANCREATITIS 10/2015 [facility] Other [facility] Narrative - Reported* Type Description Date Medical History DM 2 Medical History HTN Medical History HLP, mixed Medical History SKIN CANCER (BASAL CELL CARCINOM A) Medical History HX OF PANCREATITIS Medical History ANXIETY Medical History CHRONIC LEG PAIN 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 In some cases, this may be from a few hours to a day. Walking may help relieve the discomfort. - If you have polyp(s) removed you may note some minor bloody discharge after your first bowel movements. - You should begin to recover from anesthesia within 1 hour of the procedure, however may feel groggy for the next 24 hours. DO's AND DON'Ts: - Call your doctor right away if you have a hard abdomen, severe pain, are passing lots of bright red blood or clots. - Call your doctor if you develop any rashes, hives or difficulty breathing. - Let your doctor know if you have not had a bowel movement by 3 days after your procedure. - If you take 81 mg aspirin for your heart it is safe to resume this medication. - If you take other blood thinner medications your doctor will instruct you when these can safely be resumed. - Do NOT drive for 24 hours. - Do NOT operate machinery such as power tools, lawn mowers, snow blowers, sewing machines, etc. for 24 hours. - Avoid alcoholic beverages and drugs for allergies, nerves, or sleep. - Do NOT stay alone. Do NOT leave your child unattended. - Do NOT make important personal or business decisions or sign any legal documents. - Eat solid foods and drink liquids in smaller amounts than usual until normal appetite returns. If you should experience an upset stomach, liquids high in sugar content (soda, Finesse-Aid, non-acid juices) are recommended. - You can resume normal activities tomorrow. FOLLOW UP & RECOMMENDATIONS: -Follow-up with Dr. Castanon as needed -Notify the doctor if you have any problems. -Dr. Castanon's office will notify you when you need your next colonoscopy -Follow up with PCP. -Office number [phone].[facility] Work Phone: Hospital Discharge instructions No data available for this section [facility] Hospital Discharge instructions Additional Instructions Return back in 2 days for wound packing removal and [facility] Work Phone: Progress note No data available for this section [facility] Chief Complaint and Reason for Visit Chief Complaint Screening Chief Complaint Abcess on back Chief Complaint Abcess on back Packing removal Advance Directives No Advanced Directives Records Found Advance Directive Response Recorded Date/ Time Advance Directives No May 2:59pm Summary Purpose Family History Relationship Condition Age at Onset Recorded Date/T israel Not Specified No pertinent family history Unknown brother Diabetes mellitus Unknown Heart disease Unknown Hypertension Unknown History of stroke Unknown father Unknown Malignant neoplasm Unknown Family history of other condition Unknown Not Specified Unknown Malignant neoplasm of ovary Unknown Diabetes mellitus Unknown No Family History Records Found Additional Source Comments Care Teams (unrecognized sec tion and content) Team Status: Active Member Role Status Dates Ori Dunbar DO Primary Care Provider Active Team Status: Inactive Member Role Status Dates Ori Dunbar DO Primary Care Provider Active Manjinder Castanon MD Attending Provider Active Team Status: Inactive Member Role Status Dates Ori Dunbar , Primary Care Provider Active Estiven Echavarria APRN Emergency Provider Active Team Status: Inactive Member Role Status Dates Ori Dunbar DO Primary Care Provider Active Sophia Anderson APRN Emergency Provider Active (unrecognized sect ion and content) No Status Records FoundNo Status Records FoundNo Status Records Found INFORMATION SOURCE (unrecogn ized section and content) DATE CREATED AUTHOR 10/23/2022 [facility] DATE CREATED AUTHOR AUTHOR'S ORGANIZ ATION 08/13/2023 [facility] DATE CREATED AUTHOR AUTHOR'S ORGANIZ ATION 09/17/2023 [facility] Goals (unrecognized section and content) Goals may be documented in a n alternate section REASON FOR VISIT (unrecogniz ed section and content) dmTKM - NEW PATIENT NEXT WEE KNew pt Type 2 DM kaye 2 cgm 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 This clinical summary was aggregated from multiple sources. Caution should be exercised in using it in the provision of clinical care. This summary normalizes information from multiple sources, and as a consequence, information in this document may materially change the coding, format and clinical context of patient data. In addition, data may be omitted in some cases. CLINICAL DECISIONS SHOULD BE BASED ON THE PRIMARY CLINICAL RECORDS. [employer] provides no warranty or guarantee of the accuracy or completeness of information in this document.
--- NOTE | 2023-12-17 17:30 | ED.WOUNDLAC1 ---
HPI - Wound/Laceration General Chief Complaint: Wound/Laceration Stated Complaint: facial injury-[facility] Time Seen by Provider: 12/17/23 17:30 Source: patient Mode of arrival: walk-in Limitations: no limitations History of Present Illness HPI narrative: This patient is here from his place of employment. He sustained a blunt trauma from a door striking him in the upper maxillary lip area. He had a partial plate and the teeth were knocked out. He also has a laceration to the inner upper lip on the right of the midline. He said his dentist who did the partial plate is retired. He does not have any other dentist. He has allergies to penicillin. He does not have any other trauma or injury today. This is a Worker's Comp. type of injury. Related Data Home Medications ?Medication ?Instructions ?Recorded ?Confirmed lisinopril 10 mg tablet 10 mg PO DAILY 07/17/23 12/17/23 metformin 1,000 mg tablet 1,000 mg PO DAILY 07/17/23 12/17/23 pen needle, diabetic 32 gauge x 07/17/23 07/17/23 (BD Sadie 2nd Gen Pen Needle) rosuvastatin 20 mg tablet 20 mg PO DAILY 12/17/23 12/17/23 Allergies Allergy/AdvReac Type Severity Reaction Status Date / Time Penicillins All[facility]ified 12/17/23 17:[facility] Social History Smoking status: Never smoker Exam Constitutional Vital Signs, click to edit/add: Last Vital Signs Temp 98.4 F 12/17/23 17:16 Pulse 109 H 12/17/23 17:16 Resp 18 12/17/23 17:16 BP 176/95 H 12/17/23 17:16 Pulse Ox 96 12/17/23 17:16 O2 Del Method Room Air 12/17/23 17:16 Course Vital Signs Vital signs: Vital Signs Temperature 98.4 F 12/17/23 17:16 Pulse Rate 109 H 12/17/23 17:16 Respiratory Rate 18 12/17/23 17:16 Blood Pressure 176/95 H 12/17/23 17:16 Pulse Oximetry 96 12/17/23 17:16 Oxygen Delivery Method Room Air 12/17/23 17:16 Temperature 98.4 F 12/17/23 17:16 Pulse Rate 109 H 12/17/23 17:16 Respiratory Rate 18 12/17/23 17:16 Blood Pressure 176/95 H 12/17/23 17:16 Pulse Oximetry 96 12/17/23 17:16 Oxygen Delivery Method Room Air 12/17/23 17:16 Discharge Plan Discharge Chief Complaint: Wound/Laceration Prescriptions / Home Meds: No Action metformin 1,000 mg tablet 1,000 mg PO DAILY lisinopril 10 mg tablet 10 mg PO DAILY (DME) pen needle, diabetic [BD Sadie 2nd Gen Pen Needle] 32 gauge x 5/32 needle MISCELLANEOUS rosuvastatin 20 mg tablet 20 mg PO DAILY Print Language: [place] Citizen Referrals: Physician,Non-Staff, MD [Primary Care Provider] - 1 week
[2023-12-17] MEDS: WATER FOR IRRIGATION, STERILE 1,000 ML IRRIG.SOLN 1000 ML IRR (17:40)
[2023-12-17] MEDS: LIDOCAINE HCL 1%-EPINEPHRINE 1:100,000 20 ML MDV INJ (17:40)
[2023-12-17] MEDS: HYDROCODONE/ACET 5-325 MG TABLET 2 TAB PO (18:02)
--- NOTE | 2023-12-17 18:03 | ED_ITS ---
HPI - Wound/Laceration General Chief Complaint: Wound/Laceration Stated Complaint: facial injury-[facility] Time Seen by Provider: 12/17/23 17:30 Source: patient Mode of arrival: walk-in Limitations: no limitations History of Present Illness HPI narrative: 58-year-old male presents from work for evaluation of facial laceration. Patient states he was working with a device that had a safety bar at the size of a shoebox, patient reports it opened quickly under power almost like it was stuck and struck him in the face. Patient has a complex laceration to the upper lip and broke the 2 front teeth of the upper palate where he had prior dental implants. Patient notes moderate pain to the face localized to the area of the laceration. He denies any headache or loss of consciousness. Location: Reports face Place: Reports work Context: Reports accidental Associated symptoms: Reports pain Related Data Home Medications ?Medication ?Instructions ?Recorded ?Confirmed lisinopril 10 mg tablet 10 mg PO DAILY 07/17/23 12/17/23 metformin 1,000 mg tablet 1,000 mg PO DAILY 07/17/23 12/17/23 pen needle, diabetic 32 gauge x 07/17/23 07/17/2332 (BD Sadie 2nd Gen Pen Needle) rosuvastatin 20 mg tablet 20 mg PO DAILY 12/17/23 12/17/23 Allergies Allergy/AdvReac Type Severity Reaction Status Date / Time Penicillins Allergy Verified 12/17/23 17:19 Review of Systems ROS Constitutional Denies: fever or chills Ears, nose, mouth, and throat Denies: throat pain or neck pain Cardiovascular Denies: chest pain or palpitations Respiratory Denies: shortness of breath or cough Gastrointestinal Denies: abdominal pain or nausea Integumentary/Breast Denies: rash Neurological Denies: headache Psychiatric Denies: anxiety PFSH PFSH Social History Smoking status: Never smoker Exam Narrative Exam Narrative: Nurses notes reviewed and patient is noted to be non-hypoxic. General: The patient is comfortable, alert and oriented x3, well appearing, non toxic in no apparent distress. Head: normocephalic. laceration to the upper lip. Upper front 2 teeth fractured off at the gumline, no whole : history of dental implants Eyes: Normal conjunctiva, no exudates. ENT: The oropharynx is normal. No pharyngeal erythema, uvular edema, tonsillar exudates, asymmetry or trismus. Uvula is midline. For complex laceration and the upper lip, does not protrude through the vermilion border. Slight avulsion of the skin flap on the anterior lip also noted. No other visible dental injury noted other than fracture at the gumline At the upper front 2 teeth. Airway is patent. Neck: The neck demonstrates normal range of motion. No meningeals signs are present. No stridor. No masses or lymphandenopathy noted.No neck tenderness. Respiratory: No acute distress, lungs are clear to auscultation, no wheezing, rhonchi, or rales noted. No stridor or retractions are noted. Cardiovascular: Regular rate and rhythm Skin: The skin exam shows no evidence of rashes Neuro: Alert and oriented x4, normal speech Lymphatic: No cervical lymphadenopathy Constitutional Vital Signs, click to edit/add: Last Vital Signs Temp 98.4 F 12/17/23 17:16 Pulse 109 H 12/17/23 17:16 Resp 18 12/17/23 17:16 BP 176/95 H 12/17/23 17:16 Pulse Ox 96 12/17/23 17:16 O2 Del Method Room Air 12/17/23 17:16 Course Vital Signs Vital signs: Vital Signs Temperature 98.4 F 12/17/23 17:16 Pulse Rate 109 H 12/17/23 17:16 Respiratory Rate 18 12/17/23 17:16 Blood Pressure 176/95 H 12/17/23 17:16 Pulse Oximetry 96 12/17/23 17:16 Oxygen Delivery Method Room Air 12/17/23 17:16 Temperature 98.4 F 12/17/23 17:16 Pulse Rate 109 H 12/17/23 17:16 Respiratory Rate 18 12/17/23 17:16 Blood Pressure 176/95 H 12/17/23 17:16 Pulse Oximetry 96 12/17/23 17:16 Oxygen Delivery Method Room Air 12/17/23 17:16 MDM - Wound/Laceration MDM Narrative Medical decision making narrative: Patient's tetanus was not up-to-date, it was updated here in the ER. He will be placed on antibiotic and will need prompt follow-up to occupational medicine clinic, he is not to work as he will likely be on pain medication pending follow-up on Wednesday. Patient will need dental care with likely oral surgeon. We discussed local options in the community but this will need to be facilitated through the [facility]/occupational medicine clinic. Patient verbally understandable, we discussed temperature neutral foods in the mouth, rinsing after each meal. Suture removal in 5 to 7 days to the 2 blue Prolene sutures, expected dissolving sutures to resolve on their own. Patient was thankful. Pt unable to work while on pain medication. The patient is to followup with occupational medicine clinic on Wednesday or to return to the emergency department should any of the signs or symptoms worsen or new symptoms develop. Patient had questions answered. The patient agrees with the following Diagnosis and Treatment plan and the patient will be discharged home. Discharge Plan Discharge Stand Alone Forms: Portal Instructions Chief Complaint: Wound/Laceration Clinical Impression: Laceration of lip, complicated, Fracture of dental implant Patient Disposition: Home, Self-Care Time of Disposition Decision: 18:15 Condition: Good Prescriptions / Home Meds: No Action metformin 1,000 mg tablet 1,000 mg PO DAILY lisinopril 10 mg tablet 10 mg PO DAILY (DME) pen needle, diabetic [BD Sadie 2nd Gen Pen Needle] 32 gauge x 5/32 needle MISCELLANEOUS rosuvastatin 20 mg tablet 20 mg PO DAILY Print Language: Citizen Of [place] Instructions: Acute Dental Trauma (ED), Facial Laceration (ED) Additional Instructions: Call Occupational medicine clinic wednesday for Same day appt if possible ( May need referral from [facility] med clinic) - Dr. Alvarez Oral maxilofacial- [address] [place] [address] t ? [phone] f ? [phone] Referrals: [facility] [Outside] - As soon as possible Physician,Non-Staff, MD [Primary Care Provider] - 1 week Procedures ED Procedure Instructions Procedures Procedures: Laceration repair: Done under sterile conditions. The use of Betadine was used to prep and clean the area. Local injection with lidocaine 1% with epid was used, approximately 2 cc. The wound was irrigated copiously with normal saline. The wound was explored there was no evidence of foreign material. The comlex lip laceration was approximated with 2 6-0 prolene at outer most edge.. then 3 5-vicrylsimple interrupted sutures were placed. lip approximated well, but is swollen. Patient tolerated the procedure well. The patient was neurovascularly intact post. the patient had bacitracin applied to the laceration and a dry sterile dressing was place. The patient will need to follow-up in the next 5-7 days for removal. Recommended topical ice, discussed Temperature neutral foods in the mouth and rinsing after each meal regularly. Block, patient had 1% lidocaine with epi 1ml used for alveolar block on the front 2 teeth, adequate pain relief immediately achieved.Tolerated this well.
[2023-12-17] MEDS: ADACEL DIPH,PERTUSS(ACELL),TET VAC/PF 0.5 ML ADULT SYRINGE IM (18:32)
== END 2023-12-17 18:45 | disposition home or self-care (01) ==
PROVIDERS: Emergency Provider Emergency Medicine Emergency Medical Services; PCP Family Medicine
DX: S01.511A Laceration without foreign body of lip, initial encounter (principal); S02.5XXA Fracture of tooth (traumatic), initial encounter for closed fracture; M27.63 Post-osseointegration mechanical failure of dental implant; W22.8XXA Striking against or struck by other objects, initial encounter; Z23 Encounter for immunization
CPT/HCPCS: 12011; 64450; 90471; 90715; 99285

== ENCOUNTER 2023-12-20 14:56 | Outpatient (OUT) | payer OTHER, SELFPAY ==
--- NOTE | 2023-12-20 15:08 | CT_ITS ---
The [address] [address] Patient Name: MARY KAY BERNAL MRN: [id number] date: 1965 Sex: M Assigned Patient Location: CT Current Patient Location: CT Accession/Order Number: [id number] Exam Date: 12/20/2023 15:14 Report Date: 12/20/2023 16:55 At the request of: RUBY SKINNER Procedure: CT facial bones wo con EXAM: CT facial bones wo con HISTORY: Dental fracture, Superior lip laceration COMPARISON: CT 07/17/2023. TECHNIQUE: Multiple axial unenhanced CT images of the maxillofacial bones were supplemented with 2D coronal and sagittal reformations. Dose reduction techniques were achieved by using automated exposure control and/or adjustment of mA and/or kV according to patient size and/or use of iterative reconstruction technique. FINDINGS: Facial bones: Chronic deformity of the right nasal bone is noted. There is a metallic wire in the lateral left orbital wall compatible with prior surgery. No acute orbital or maxillary wall fracture is identified. Zygomatic arches and pterygoid plates are preserved. Mandible appears intact, as seen. Apical lucency/abscess is seen involving the central mandibular incisors and right lateral mandibular incisor. Beam hardening artifact from dental amalgam. There was orthodontic hardware involving the central maxillary incisors and right lateral maxillary incisor, which is no longer seen. There is a fracture of the right lateral maxillary incisor (series 6, image 7, for example) which is nondisplaced. As seen, the middle ear cavities and mastoid air cells appear clear. Paranasal sinuses: Mucous retention cyst in the left maxillary sinus. No air-fluid levels. Orbits: Orbital structures appear unremarkable. Cervical spine: Upper cervical spine appears preserved. Intracranial structures: Intracranial structures appear unremarkable, as seen. Soft tissues: There is soft tissue swelling of the upper lip. No soft tissue gas identified. CT/CT facial bones wo con IMPRESSION: 1. Orthodontic hardware involving the maxillary incisors is no longer seen and there is interval fracture of the remnant of the right lateral maxillary incisor. 2. Similar apical lucency/abscess involving the mandibular incisors, as above. 3. No acute facial bone fracture identified. 4. 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 Electronically authenticated by: ORI ROYAL Date: 12/20/2023 16:55
--- OUTSIDE RECORDS SUMMARY | 2023-12-20 15:18 | XMS_ITS | CCD ---
Author Organization [facility] Care Team Providers Care Seal Skinner Name Role Phone DO Ori Dunbar Primary Care Provider MD Manjinder Castanon Attending Provider ORI DUNBAR Primary Care Physician ORI DUNBAR Referring Unavailable Riley PANIAGUA Attending Unavailable DO Ori Dunbar Primary Care Provider [phone] DWAIN Echavarria Emergency Provider DWAIN Anderson Emergency Provider Aminta Fair Unavailable Mapus, Tondra Unavailable PETORI [...] Reaction(s) Facility (1 source) penicillAMINE Drug Allergy [facility] Other (3 sources) Penicillin Drug Allergy [facility] Other (1 source) Penicillins Drug allergy (disorder) 3 [facility] Repository Medications Current Medications Medication Drug [...] sources) Long-term current use of insulin; Translations: [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 [employer] Other Glucose Glucometer (BldC) [M ass/Vol]Ordered By: Manjinder Castanon on 09-30-2022 Glucose [Mass/Vol] 198 mg/dL [facility] Comment on above: Random Glucose Refer ence Range is dependent on time and content of last meal. Glucose of more than 200 mg/dL in a nonstressed, ambulatory subject supports the diagnosis of Diabetes Mellitus. Glucose Poct Glucometerson 0 09-30-2022 Commemt1 Glu2: Cleaned Meter Normal [facility] Comment on above: Result Comment: PERF ORMED BY: [facility] [address] [place] [address] PATHOLOGIST MUSIC THERAPY SPECIALIST NITISH MORLEY M.D. Performed By: #### G ZOELS #### Point of Care testing , Glucose [Mass/Vol] 198 mg/dL Normal [facility] Comment on above: Result Comment: [place] om Glucose Reference Range is dependent on time and content of last meal. Glucose of more than 200 mg/dL in a nonstressed, ambulatory subject supports the diagnosis of Diabetes Mellitus. Performed By: #### G ZOELS #### Point of Care testing , Jarad 09-30-2022 L Specimen: [id number] Received: 09/30/22 Status: EDITATino Drake Num: [id number] Spec Type: Surgical Subm Dr: Manjinder Castanon MD Tissues: A Colon Biopsy (SIGMOID POLYP) Procedures: HE/Terell, Gross/Micro L4 Age/ Patient Sex Location Account Attending Physician Trevon Fernandez/M [id number] Manjinder Castanon MD SPEC NUM: [id number] RECD: 09/30/22 STATUS: ALIX DRAKE NUM: [id number] SANTANA: 09/30/22[facility] DR: Manjinder Castanon MD ENTERED: 09/30/22 BERTHA [...] support the above pathologic diagnosis. CPT Codes 52865 Specimen: [id number] Received: 09/30/22 Status: ALIX Drake Num: [id number] Spec Type: Surgical Subm Dr: Manjinder Castanon MD Tissues: A Colon Biopsy (SIGMOID POLYP) Procedures: HE/2, Gross/Micro L4 Patient: JimTrevon [id number] (Continued) Signed (gaye romero on file) Justyna Devries MD 10/01/22 0955 Normal [facility] No Panel InformationOrdered By: Manjinder Castanon on 09-30-2022 Bedside Glucose Comment Glu2: cleaned meter [facility] Vital Signs Date Time Vital Sign Value Performing Clinician Facility 05-19-2023 13:00-0400 Body height 187.96 cm Tondra Mapus Other [employer] Other 05-19-2023 13:00-0400 Body mass index (BMI) [Ratio] 35.05 kg/m2 Tondra Mapus Other [employer] Other 05-19-2023 13:00-0400 Body weight 123.83 kg Tondra Mapus Other [employer] Other 05-19-2023 13:00-0400 Diastolic blood pressure 83 mm[Hg] Tondra Mapus Other [employer] Other 05-19-2023 13:00-0400 Respiratory rate 18 /min Tondra Mapus Other [employer] Other 05-19-2023 13:00-0400 SaO2% (BldA) [Mass fraction] 95 % Tondra Mapus Other [employer] Other 05-19-2023 13:00-0400 Systolic blood pressure 149 mm[Hg] Tondra Mapus Other [facility] [employer] Other 05-06-2023 10:00-0400 Body height 187.96 cm Aminta Fair Other [facility] [employer] Other 2023 11:17-0400 Body height 187.96 cm DO Ori Petznick Work Phone: [facility] 2023 11:17-0400 Body temperature 98.2 [degF] DO Ori Petznick Work Phone: [facility] 2023 11:17-0400 Body weight 122.05 kg DO Ori Petznick Work Phone: [facility] 2023 11:17-0400 Diastolic blood pressure 82 mm[Hg] DO Ori Petznick Work Phone: [facility] 2023 11:17-0400 Heart rate 93 /min DO Ori Petznick Work Phone: [facility] 2023 11:17-0400 Respiratory rate 18 /min DO Ori Petznick Work Phone: [facility] 2023 11:17-0400 SaO2% (BldA) [Mass fraction] 96 % DO Ori Petznick Work Phone: [facility] 2023 11:17-0400 Systolic blood pressure 168 mm[Hg] DO Ori Petznick Work Phone: [facility] 02-20-2023 12:04-0400 Body height 187.96 cm DO Ori Petznick Work Phone: [facility] 02-20-2023 12:04-0400 Body weight 122.46 kg DO Ori Petznick Work Phone: [facility] 02-20-2023 12:02-0400 Body temperature 98.8 [degF] DO Ori Petznick Work Phone: [facility] 02-20-2023 12:02-0400 Diastolic blood pressure 101 mm[Hg] DO Ori Petznick Work Phone: 1(454)[phone] [place] [address] 02-20-2023 12:02-0400 Heart rate 90 /min DO Ori Petznick Work Phone: 4(601)[phone] [address] 02-20-2023 12:02-0400 Respiratory rate 16 /min DO Ori Petznick Work Phone: 7(404)[phone] [place] [address] 02-20-2023 12:02-0400 SaO2% (BldA) [Mass fraction] 96 % DO Ori Petznick Work Phone: 6(876)[phone] [address] 02-20-2023 12:02-0400 Systolic blood pressure 158 mm[Hg] DO Ori Petznick Work Phone: 1(686)[phone] [address] 09-30-2022 09:10-0400 Diastolic blood pressure 65 mm[Hg] DO Ori Petznick Work Phone: 9(122)[phone] [address] 09-30-2022 09:10-0400 Heart rate 65 /min DO Ori Petznick Work Phone: 8(548)[phone] [address] 09-30-2022 09:10-0400 Respiratory rate 16 /min DO Ori Petznick Work Phone: 4(940)[phone] [address] 09-30-2022 09:10-0400 Systolic blood pressure 158 mm[Hg] DO Ori Petznick Work Phone: 4(702)[phone] [address] 09-30-2022 08:55-0400 SaO2% (BldA) [Mass fraction] 96 % DO Ori Petznick Work Phone: 2(162)[phone] [address] 09-30-2022 07:11-0400 Body height 187.96 cm DO Ori Petznick Work Phone: 1(627)[phone] [place] [address] 09-30-2022 07:11-0400 Body weight 124.22 kg DO Ori Petznick Work Phone: [facility] Encounters Encounter Date Encounter Type Care Provider Facility Start: 08-25-2023 End: 08-25-2023 ambulatory Micaela Portillo Other [employer] Other Start: 08-25-2023 Telephone encounter Micaela Baldwin [facility] Start: 08-12-2023 End: 08-12-2023 ambulatory ORI DUNBAR Not Available Start: 05-19-2023 End: 05-20-2023 ambulatory Ori Dunbar [facility] [employer] Other Start: 05-19-2023 F[facility]HC visit new patient Micaela Portillo [facility] Start: 05-12-2023 End: 05-12-2023 ambulatory Micaela Portillo Other [employer] Other Start: 05-12-2023 Telephone encounter Micaela Baldwin [facility] Start: 05-06-2023 (RD) 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 Construction Manager Aminta Fair [facility] Start: 05-06-2023 End: 05-07-2023 ambulatory Ori Dunbar [facility] [employer] Other Start: 2023 End: 2023 Emergency department patient visit Ori Dunbar Facility:[facility] Start: 2023 End: 2023 Emergency department patient visit DO Ori Pethcaroick Work Phone: [facility] Work Phone: Start: 02-20-2023 End: 02-20-2023 Emergency department patient visit Ori Dunbar Facility:[facility] Start: 02-20-2023 End: 02-20-2023 Emergency department patient visit DO Ori Petznick Work Phone: [facility] Work Phone: Start: 10-21-2022 End: 10-22-2022 ambulatory ORI PETZNICK Facility:[facility] Start: 10-21-2022 End: 10-21-2022 Patient encounter procedure Riley Herrera SIV[facility] Start: 09-30-2022 End: 09-30-2022 ambulatory Ori Dunbar Facility:[facility] Start: 09-30-2022 End: 09-30-2022 Admission to same day surgery center DO Ori Dunbar Work Phone: [facility] Work Phone: Start: 09-30-2022 End: 09-30-2022 ambulatory DO Ori Dunbar Work Phone: [facility] Work Phone: Start: 09-01-2022 ambulatory ORI DUNBAR Facili ty:[facility] Procedures Date Procedure Procedure Detail Performing Clinician Start: 09-30-2022 Screening colonoscopy D O Ori Dunbar Work Phone: Plan of Treatment Date Care Activity Detail Author Start: 09-30-2022 [facility] Patient Education [facility] Work Phone: Patient referral [facility] Work Phone: Payers Date Payer Category Payer Unknown [id number] 2022 Self-pay [id number] 2022 Unknown [id number] 1965 Unknown [id number] 2.16.84 [id number] Private Health Insurance [id number] Unknown [id number] 2.16.8 [id number] Unknown [id number] 2.16.8 [id number] Unknown [id number] 2.16.8 [id number] Unknown [id number] 2.16.8 [id number] Unknown [id number] 2.16.8 [id number] Social History Date Type Detail Facility Tobacco smoking stat us KYIS Unknown if ever smoked [facility] Work Phone: Start: 1965 Sex Assigned At Male [facility] Tobacco smoking status No Smokin g Status Entered [facility] Sex Assigned At Male [facility] Start: 02-20-2023 End: 2023 Tobacco smoking status NHIS Never smoked tobacco (finding) [facility] Goals Date Patient Goal Desired Activity [...] BMI 35.0-35.9,adult (ICD-10 - Z68.35) see above [employer] Other 10-19-2023 Evaluation note* Encounter Date Diagnosis [...] aim for 1/2 plate veggies at dinner [employer] Other 08-07-2023 Hospital Discharge instructions Additional Instructions Warm compresses to area affected Continue antibiotic as instructed until gone Follow-up with your PCP for 3 to 5 days Return here if any problems persist or worsen including fever, chills, increased pain, swelling or any [facility] Work Phone: [phone]) 136-330303-15-2023 [facility] + [facility] note No data available for this section [facility] Evaluation noteNo assessment information available [facility] Work Phone: Evaluation noteNo InformationNorth [employer] Other History and physical note Author Manjinder Castanon [facility] September 30, 2022 8:20am Note Date/Time September 30, 2022 8:[address] [facility] ENTER [address] [place] [address] Gastroenterology H&P Signed Patient: Trevon Fernandez MR#: [id number] : 1965 Acct:[id number] Age/Sex: 57 / M Adm Date: 3 Loc: Room: Type: [facility] Attending Dr: Manjinder Castanon MD Copies to: [...] signed by Manjinder Castanon MD> 09/30/22 0820 [facility] Work Phone: [facility] Narrative - Reported* Type Description Date Medical History DM 2 Medical History HTN Medical History HLP, mixed Surgical History right knee arthoscope 1986 Surgical History left knee arthoscope 2015 Surgical History tonsillectomy Hospitalization History PANCREATITIS 10/2015 [employer] Other [facility] Narrative - Reported* Type Description Date [...] OF BACK 23 Hospitalization History PANCREATITIS 10/2015 [employer] Other Hospital Discharge instructions Additional Instructions DISCHARGE [...] colonoscopy -Follow up with PCP. -Office number [phone].[facility] Work Phone: Hospital Discharge instructions No data available for this section [facility] Hospital Discharge instructions Additional Instructions Return back in 2 days [facility] wound packing [facility] Work [facility]: Progress note No data available for this section [facility] Chief Complaint and Reason for Visit [...] content) DATE CREATED AUTHOR 10/23/2022 Harley Kapoor [facility] DATE CREATED AUTHOR AUTHOR'S ORGANIZ ATION 08/13/2023 [facility] DATE CREATED AUTHOR AUTHOR'S ORGANIZ ATION 09/17/2023 [facility] Goals (unrecognized section and content) Goals may be documented in a n alternate section REASON FOR VISIT (unrecogniz ed section and content) dmTKM - NEW PATIENT NEXT WEE KNew pt Type 2 DM kaye 2 cgm apt with [employer]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 [employer] provides no warranty or guarantee of the accuracy or completeness of information in this document.
== END 2023-12-20 14:57 | disposition home or self-care (01) ==
LOC: CT 14:57
PROVIDERS: PCP Family Medicine; Visit Provider Nurse Practitioner Family
DX: S02.5XXD Fracture of tooth (traumatic), subsequent encounter for fracture with routine healing (principal); S01.511A Laceration without foreign body of lip, initial encounter
CPT/HCPCS: 70486